=== PATIENT | female | born 1955 | race Caucasian/White ===

== ENCOUNTER 2016-05-22 09:13 | Emergency (ER) | payer BC ==
--- NOTE | 2016-05-22 09:30 | EDM.PDOC ---
ED HPI ENT - General Chief Complaint: ENT Problem Stated Complaint: COLD/EAR Time Seen by Provider: 05/22/16 09:18 Source of Information: Reports: Patient History Limitations: Reports: No limitations - History of Present Illness INITIAL COMMENTS - FREE TEXT/NARRATIVE: History of present illness: [] This had a cold for a week and presents with a right superior ear pain. She denies any fevers she does have a cough and postnasal drip congestion. She denies feeling short of breath or having any difficulty swallowing Review of systems: As per history of present illness and below otherwise all systems reviewed and negative. Past medical history: As per history of present illness and as reviewed below otherwise noncontributory. Surgical history: As per history of present illness and as reviewed below otherwise noncontributory. Social history: No reported history of drug or alcohol abuse. Family history: As per history of present illness and as reviewed below otherwise noncontributory. Physical exam: General: Well developed, well nourished in NAD HEENT: Atraumatic, normocephalic, pupils reactive, negative for conjunctival pallor or scleral icterus, mucous membranes moist, throat clear, neck supple, nontender, trachea midline. Right TM and EAC are erythematous, no bloody drainage Lungs: Clear to auscultation, breath sounds equal bilaterally, chest nontender. No wheezing Heart: S1S2, regular, negative for clicks, rubs, or JVD. Abdomen: Soft, nondistended, nontender. Negative for masses or hepatosplenomegaly. Negative for costovertebral tenderness. Pelvis: Stable nontender. Genitourinary: Deferred. Rectal: Deferred. Extremities: Atraumatic, negative for cords or calf pain. Neurovascular unremarkable. Neuro: Awake, alert, oriented. Cranial nerves II through XII unremarkable. Cerebellum unremarkable. Motor and sensory unremarkable throughout. Exam nonfocal. Diagnostics: [] Therapeutics: [] Impression: [] Right otitis media and externa Plan: [] Augmentin twice a day for 10 days Tylenol Motrin for pain Definitive disposition and diagnosis as appropriate pending reevaluation and review of above. - Related Data Allergies/ADRs: Allergies Allergy/AdvReac Type Severity Reaction Status Date / Time tramadol Allergy Vomiting Verified 05/22/16 09:26 Home Meds: Home Meds Levothyroxine Sodium [Synthroid] 200 mg PO ACBRK 07/17/13 [History] Losartan [Cozaar] 50 mg PO ACBRK 07/17/13 [History] Omeprazole Magnesium [Prilosec Otc] 40 mg PO ACBRK 07/17/13 [History] Spironolactone 25 mg PO DAILY 07/17/13 [History] Acetaminophen [Tylenol Extra Strength] 1,000 mg PO Q6H #100 tablet 03/24/16 [Rx] Aspirin 325 mg PO BID #90 tablet 03/24/16 [Rx] Celecoxib [CeleBREX] 200 mg PO BID #45 cap 03/24/16 [Rx] Docusate Sodium [Colace] 100 mg PO BID #60 cap 03/24/16 [Rx] oxyCODONE 5 - 10 mg PO Q4H PRN #80 tablet 03/24/16 [Rx] oxyCODONE ER [OxyCONTIN] 20 mg PO Q12HR #20 tab.er 03/24/16 [Rx] Amoxicillin/Clavulanate K [Augmentin 500 MG\\125 MG] 1 tab PO Q12HR #20 tablet [Rx] Past Medical History HEENT History: Reports: Other (see below) Other HEENT History: top denture, lower partial, wears glasses Cardiovascular History: Reports: CAD, Hypertension Respiratory History: Reports: None Gastrointestinal History: Reports: GERD, Hiatal hernia Genitourinary History: Reports: None 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 labs were reviewed. Social & Family History - Tobacco Use Smoking Status *Q: Former Smoker - Caffeine Use Caffeine Use: Reports: Coffee, Soda - Alcohol Use Days Per Week of Alcohol Use: 0 Number of Drinks Per Day: 0 Total Drinks Per Week: 0 - Recreational Drug Use Recreational Drug Use: No Drug Use in Last 12 Months: No ED ROS ENT - Review of Systems Review Of Systems: See Below (See history of present illness) ED EXAM, ENT - Physical Exam Exam: See Below (See history of present illness) Departure - Departure Time of Disposition: 09:29 Disposition: Home, Self-Care 01 Condition: good Clinical Impression: Right otitis media Qualifiers: Otitis media type: unspecified Chronicity: unspecified Qualified Code(s): H66.91 - Otitis media, unspecified, right ear Prescriptions: Amoxicillin/Clavulanate K [Augmentin 500 MG\\125 MG] 1 tab PO Q12HR #20 tablet Forms: ED Department Discharge Additional Instructions: The following information is given to patients seen in the emergency department who are being discharged to home. This information is to outline your options for follow-up care. We provide all patients seen in our emergency department with a follow-up referral. The need for follow-up, as well as the timing and circumstances, are variable depending upon the specifics of your emergency department visit. If you don't have a primary care physician on staff, we will provide you with a referral. We always advise you to contact your personal physician following an emergency department visit to inform them of the circumstance of the visit and for follow-up with them and/or the need for any referrals to a consulting specialist. The emergency department will also refer you to a specialist when appropriate. This referral assures that you have the opportunity for follow-up care with a specialist. All of these measure are taken in an effort to provide you with optimal care, which includes your follow-up. Under all circumstances we always encourage you to contact your private physician who remains a resource for coordinating your care. When calling for follow-up care, please make the office aware that this follow-up is from your recent emergency room visit. If for any reason you are refused follow-up, please contact the [facility] Emergency Department at and asked to speak to the emergency department charge nurse. Augmentin twice a day for 10 days, heat, Motrin or Tylenol for pain [facility] [address] [place] [id number]
[2016-05-22 09:32] VITALS: BP 188/91
== END 2016-05-22 09:38 | disposition home or self-care (01) ==
LOC: MW.ED 09:13
DX: H66.91 Otitis media, unspecified, right ear (principal); I25.10 Atherosclerotic heart disease of native coronary artery without angina pectoris; I10 Essential (primary) hypertension; K21.9 Gastro-esophageal reflux disease without esophagitis; E03.9 Hypothyroidism, unspecified; E66.9 Obesity, unspecified; Z68.39 Body mass index [BMI] 39.0-39.9, adult; Z79.82 Long term (current) use of aspirin; Z79.899 Other long term (current) drug therapy; Z88.8 Allergy status to other drugs, medicaments and biological substances; Z90.49 Acquired absence of other specified parts of digestive tract; Z98.890 Other specified postprocedural states; Z87.891 Personal history of nicotine dependence
CPT/HCPCS: 99282; 99283

== ENCOUNTER → 2016-06-11 | Outpatient (CLI) | payer BC ==
[2016-06-21 16:08] LABS: HPV 16 Not Detected (NOTDET); HPV 18 Not Detected (NOTDET)
== END ==
LOC: MW.CHOBGYN 13:23
PROVIDERS: ATTEND Nurse Practitioner Women's Health
DX: Z12.4 Encounter for screening for malignant neoplasm of cervix (principal); N94.9 Unspecified condition associated with female genital organs and menstrual cycle
CPT/HCPCS: 87480; 87510; 87624; 87660; G0145

== ENCOUNTER 2019-03-27 07:38 | Day surgery (SDC) | payer BC ==
[~2019-03-27 07:38] MED LIST: Lactated Ringers 1,000 ML IV SCH; Lidocaine 2% 5 ML SDV ONE; Midazolam 1 MG/ML 2 ML SDV ONE; Propofol 200 MG/20 ML SDV ONE; Sodium Chloride 0.9% 10 ML SDV IV PRN; Sodium Chloride 0.9% 10 ML Syringe FLUSH PRN; Sodium Chloride 0.9% 2.5 ML Syringe FLUSH PRN; fentaNYL 100 MCG/2 ML SDV ONE
--- NOTE | 2019-03-27 08:24 | PCM.PREANE ---
Preanesthetic Assessment - Anesthesia/Transfusion/Family Hx Anesthesia History: Prior Anesthesia Without Reaction Other Type of Anesthesia Reaction Comment: Denies any known problems, no known family history of problems Family History of Anesthesia Reaction: No Transfusion History: No Prior Transfusion(s) Intubation History: Unknown - Review of Systems General: No Symptoms Pulmonary: No Symptoms Cardiovascular: No Symptoms Gastrointestinal: Other (acid reflux syndrome) Neurological: No Symptoms Other: Reports: None - Physical Assessment NPO Status Date: 03/26/19 NPO Status Time: 21:00 Vital Signs: Last Vital Signs Temp 36.2 C 03/27/19 07:45 Pulse 103 H 03/27/19 07:45 Resp 18 03/27/19 07:45 BP 146/87 H 03/27/19 07:45 Pulse Ox 99 03/27/19 07:45 Height: 5 ft 9 in Weight: 128.82 kg ASA Class: 2 Mental Status: Alert & Oriented x3 Airway Class: Mallampati = 3 Dentition: Reports: Dentures (upper) Thyro-Mental Finger Breadths: 3 Mouth Opening Finger Breadths: 2 ROM/Head Extension: Full Lungs: Clear to Auscultation, Normal Respiratory Effort Cardiovascular: Regular Rate, Regular Rhythm - Allergies Allergies/Adverse Reactions: Allergies Allergy/AdvReac Type Severity Reaction Status Date / Time tramadol Allergy Vomiting Verified 03/21/19 16:30 - Blood Blood Available: No - Anesthesia Plan Pre-Op Medication Ordered: None - Acknowledgements Anesthesia Type Planned: MAC Pt an Appropriate Candidate for the Planned Anesthesia: Yes Alternatives and Risks of Anesthesia Discussed w Pt/Guardian: Yes Pt/Guardian Understands and Agrees with Anesthesia Plan: Yes PreAnesthesia Questionnaire HEENT History: Reports: Other (See Below) Other HEENT History: wears glasses, has upper denture and lower partial removable denture Cardiovascular History: Reports: Hypertension Respiratory History: Reports: None Gastrointestinal History: Reports: GERD, Hiatal Hernia Genitourinary History: Reports: None 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 labs were reviewed. - SUBSTANCE USE Smoking Status *Q: Never Smoker Recreational Drug Use History: No - HOME MEDS Home Medications: Home Meds Losartan [Cozaar] 50 mg PO ACBRK 07/17/13 [History] Omeprazole Magnesium [Prilosec Otc] 40 mg PO ACBRK 07/17/13 [History] Spironolactone 25 mg PO DAILY 07/17/13 [History] Clobetasol [Clobetasol Propionate 0.05% Cream] 1 dose TOP ASDIRECTED 03/21/19 [ History] Estradiol [Estrace] 0.5 applicful VAG ASDIRECTED 03/21/19 [History] Levothyroxine Sodium [Synthroid] 250 mg PO QAM 03/21/19 [History] medroxyPROGESTERone Acetate [Medroxyprogesterone Acetate] 5 mg PO ASDIRECTED 01/26 [History] - CURRENT (IN HOUSE) MEDS Current Meds: Current Medications Lactated Ringer's (Ringers, Lactated) 1,000 mls @ 125 mls/hr IV ASDIRECTED [facility] Last Admin: 03/27/19 08:05 Dose: 125 mls/hr Sodium Chloride (Saline Flush) 10 ml FLUSH ASDIRECTED PRN PRN Reason: Keep Vein Open Sodium Chloride (Saline Flush) 2.5 ml FLUSH ASDIRECTED PRN PRN Reason: Keep Vein Open Sodium Chloride (Saline Flush) 10 ml FLUSH ASDIRECTED PRN PRN Reason: Keep Vein Open Sodium Chloride (Saline Flush) 2.5 ml FLUSH ASDIRECTED PRN PRN Reason: Keep Vein Open Sodium Chloride (Normal Saline) 10 ml IV ASDIRECTED PRN PRN Reason: IV Use Discontinued Medications Fentanyl (Sublimaze) Confirm Administered Dose 100 mcg .ROUTE .STK-MED ONE Stop: 03/27/19 07:24 Lidocaine (Xylocaine-Mpf 2%) Confirm Administered Dose 5 ml .ROUTE .STK-MED ONE Stop: 03/27/19 07:24 Midazolam HCl (Versed 1 Mg/Ml) Confirm Administered Dose 2 mg .ROUTE .STK-MED ONE Stop: 03/27/19 07:24 Propofol (Diprivan 20 Ml) Confirm Administered Dose 400 mg .ROUTE .STK-MED ONE Stop: 03/27/19 07:24
--- NOTE | 2019-03-27 09:35 | PCM.POSTAN ---
POST ANESTHESIA ASSESSMENT - MENTAL STATUS Mental Status: Alert, Oriented - VITAL SIGNS Vital Signs: Last Vital Signs Temp 36.6 C 03/27/19 09:14 Pulse 72 03/27/19 09:29 Resp 11 L 03/27/19 09:29 BP 110/62 03/27/19 09:29 Pulse Ox 94 L 03/27/19 09:29 - RESPIRATORY Respiratory Status: Respiratory Rate WNL, Airway Patent, O2 Saturation Stable - CARDIOVASCULAR CV Status: Pulse Rate WNL, Blood Pressure Stable - GASTROINTESTINAL GI Status: No Symptoms - PAIN Pain Score: 0 - POST OP HYDRATION Hydration Status: Adequate & Stable - OBSERVATIONS Free Text/Narrative:: No anesthesia problems
[2019-03-27 09:42] VITALS: BP 120/57; PULSE 74
--- NOTE | 2019-03-27 10:00 | PCM48HPAN ---
Post Anesthesia Note - EVALUATION WITHIN 48HRS OF ANESTHETIC Vital Signs in Normal Range: Yes Patient Participated in Evaluation: Yes Respiratory Function Stable: Yes Airway Patent: Yes Cardiovascular Function Stable: Yes Hydration Status Stable: Yes Pain Control Satisfactory: Yes Nausea and Vomiting Control Satisfactory: Yes Mental Status Recovered: Yes Vital Signs: Last Vital Signs Temp 36.2 C 03/27/19 09:36 Pulse 74 03/27/19 09:36 Resp 16 03/27/19 09:36 BP 120/57 L 03/27/19 09:36 Pulse Ox 95 03/27/19 09:36 - COMMENTS/OBSERVATIONS Free Text/Narrative:: no anesthesia problems
--- NOTE | 2019-03-27 10:30 | PCM.OPNOTE ---
- General Post-Op/Procedure Note Date of Surgery/Procedure: 03/27/19 Operative Procedure(s): Diagnostic EGD Findings: Hyperplastic polyps, hyperplastic appearing polyp in the pyloric channel Pre Op Diagnosis: Chronic GERD, hiatal hernia Post-Op Diagnosis: Hyperplastic gastric polyps Anesthesia Technique: [facility] Primary Surgeon: Rae Rios Condition: Good Free Text/Narrative:: Intake & Output 03/26/19 03/27/19 03/27/19 22:59 06:59 14:59 Intake Total 550 Balance 550
--- NOTE | 2019-03-28 13:29 | OR ---
SURGEON: RAE RIOS MD DATE OF PROCEDURE: 03/27/2019 PREOPERATIVE DIAGNOSIS: Chronic gastroesophageal reflux disease. POSTOPERATIVE DIAGNOSIS: Hyperplastic gastric polyp. PROCEDURE PERFORMED: Diagnostic esophagogastroduodenoscopy with biopsies. PRIMARY SURGEON: Rae Rios MD. ANESTHESIA: MAC. INSTRUMENT USED: Olympus endoscope. EXTENT OF EXAM: To the second portion of duodenum. PREPARATION: Good. LIMITATIONS: None. INDICATIONS FOR EXAMINATION: The patient is a 63-year-old female who presents with chronic GERD. She has been on PPI treatment for 10 years. At one point, she underwent an esophagram that showed a tiny hiatal hernia. Her primary care provider sent her for evaluation. I explained the need for diagnostic EGD. I explained the procedure; expected perioperative course; and risks including bleeding, infection, or damage to surrounding structures including perforation. The patient verbalized understanding and wishes to proceed. PROCEDURE IN DETAIL: The patient was brought into the endoscopy suite and placed in a beach chair position. A time-out was completed verifying the patient's name, age, date of , allergies, and procedure to be performed. A bite block was placed in the patient's mouth. Monitored anesthesia care was induced and continuous oxygen was provided via nasal cannula throughout the procedure. After adequate sedation was achieved, a well-lubricated endoscope was placed in the patient's mouth and advanced under direct visualization to the second portion of duodenum. This appeared normal and a photograph was taken. The scope was then fully withdrawn while examining the color, texture, anatomy, and integrity of the mucosa of the upper GI tract. The duodenal mucosa all appeared normal. The scope was brought into the stomach and a photograph was taken of the pylorus and the GE junction. The patient was noted to have a polyp within the pyloric channel. A biopsy of this was taken and sent to Pathology, labeled as pyloric polyp. Biopsies were taken of the gastric antrum, body, and fundus and sent for histologic review and H. pylori testing. The patient had a few scattered hyperplastic appearing polyps in the body of the stomach, but no evidence of gross ulceration or inflammation. The scope was brought into the distal esophagus and a photograph was taken of the Z-line. Overall, this appeared normal, and I did not appreciate a large hiatal hernia. The distal esophageal mucosa appeared pink and healthy. The remainder of the esophagus was normal. The scope was removed and this procedure terminated. The patient tolerated the procedure well and was transferred to the PACU in stable condition. ENDOSCOPIC DIAGNOSIS: Chronic gastroesophageal reflux disease. RECOMMENDATIONS: The patient should continue her current PPI treatment. I will follow up in clinic with her in 2 weeks to discuss her pathology results. THEODORE MONROY /[id number]
== END 2019-03-27 10:06 | disposition home or self-care (01) ==
LOC: MW.SDS 07:38
PROVIDERS: ATTEND Surgery
DX: K21.9 Gastro-esophageal reflux disease without esophagitis (principal); K29.50 Unspecified chronic gastritis without bleeding; K31.7 Polyp of stomach and duodenum; I10 Essential (primary) hypertension; E03.9 Hypothyroidism, unspecified; M10.9 Gout, unspecified; M19.90 Unspecified osteoarthritis, unspecified site; E66.9 Obesity, unspecified; Z88.5 Allergy status to narcotic agent; Z79.899 Other long term (current) drug therapy; Z79.3 Long term (current) use of hormonal contraceptives; Z90.49 Acquired absence of other specified parts of digestive tract; Z87.891 Personal history of nicotine dependence; Z68.41 Body mass index [BMI] 40.0-44.9, adult
CPT/HCPCS: 43239; J2001; J2250; J2704; J3010; J7120; 88305; 88312